=== PATIENT | male | born 2000 | race Caucasian/White ===

== ENCOUNTER 2021-09-24 00:01 | Emergency (ER) | payer OTHER ==
[~2021-09-24] VITALS: Ht 185 cm; Wt 89.0 kg
[~2021-09-24 00:01] MED LIST: LORA10TA54; PROM25SU10 PR
[2021-09-24] MEDS ORDERED: LACTATED RINGERS 1,000 ML IV STA (00:15)
[2021-09-24] MEDS ORDERED: ONDANSETRON 4 MG/2 ML (SDV) Z0FRAN IVP ONE (00:15)
--- NOTE | 2021-09-24 00:21 | ED Head Injury ---
General Stated Complaint: FELL, HIT HEAD Source: patient Exam Limitations: no limitations History of Present Illness Date Seen by Provider: Sep 24, 2021 Time Seen by Provider: 00:10 Initial Comments Here with report of head injury. Admits to drinking quite a bit of alcohol tonight at a [employer]. Currently he got home and was vomiting. He fell back and hit his head on the toilet on the back right side. No loss of consciousness but has had repeated vomiting since. They were not sure if it was related to the head injury or the alcohol so brought him in for further evaluation. Denies other injury. He is able to stand but is a little unsteady. Answers questions appropriately and follows commands. Occurred: just prior to arrival (Approximately 1 hour ago) Severity: moderate Location: occipital Method of Injury: fell Loss of Consciousness: no loss of consciousness Associated Systoms: Nausea/Vomiting Allergies and Home Medications Allergies Coded Allergies: No Known Drug Allergies (Unverified Allergy, Mild, 02/17/10) Patient Home Medication List Home Medication List Reviewed: Yes Loratadine (Children's Clear-Atadine) 10 Mg Tab.blaine, (Reported) Entered as Reported by: MARGARETTE ROTH on 02/17/102143 Review of Systems Review of Systems Constitutional: see HPI; No chills, No fever Eyes: Denies Blurred Vision, Denies Decreased Acuity Ears, Nose, Mouth, Throat: no symptoms reported Respiratory: No cough, No short of breath Cardiovascular: no symptoms reported Gastrointestinal: nausea, vomiting Musculoskeletal: No back pain, No neck pain Skin: change in color (Redness posterior right side of the head); No lesions Psychiatric/Neurological: Headache (Band[place] around the head), Other (Intoxication) All Other Systems Reviewed Negative Unless Noted: Yes Past Jlqowzh-[id number]-Gxgrsa Hx Patient Social History Tobacco Use?: No Alcohol Use?: Yes Alcohol Frequency: Once in a while Past Medical History Surgeries: No Respiratory: No Cardiac: No Genitourinary: No Gastrointestinal: No Musculoskeletal: No Family Medical History Reviewed Nursing Family Hx Physical Exam Vital Signs Vital Signs - First Documented 09/24/21 00:08 Temp 36.9 Pulse 91 Resp 16 B/P (MAP) 122/84 (97) Pulse Ox 97 O2 Delivery Room Air Capillary Refill : Height, Weight, BMI Height: '" Weight: lbs. oz. kg; BMI Method:Stated General Appearance: WD/WN, no apparent distress HEENT: PERRL/EOMI ([place] bilateral and equal), TMs normal, pharynx normal Neck: full range of motion, supple Cardiovascular: regular rate, rhythm, no murmur Respiratory: lungs clear, normal breath sounds Gastrointestinal: non tender, soft Extremities: non-tender, normal inspection Psychiatric: alert, oriented x 3 Crainal Nerves: normal hearing, PERRL, other (Slightly slurred speech) Coordination/Gait: other (Gait slightly unsteady but able to walk from wheelchair to bed unassisted) Skin: normal color, warm/dry [place] Coma Score Best Eye Response: (4) Open Spontaneously Best Verbal Response: (5) Oriented Best Motor Response: (6) Obeys Commands Progress/Results/Core Measures Results/Orders Lab Results Laboratory Tests Test 09/24/21 00:13 Range/Units White Blood Count 6.3 4.3-11.0 10^3/uL Red Blood Count 5.18 4.30-5.52 10^6/uL Hemoglobin 15.7 13.3-17.7 g/dL Hematocrit 44 40-54 % Mean Corpuscular Volume 86 80-99 fL Mean Corpuscular Hemoglobin 30 25-34 pg Mean Corpuscular Hemoglobin Concent 35 32-36 g/dL Red Cell Distribution Width 12.2 10.0-14.5 % Platelet Count 307 130-400 10^3/uL Mean Platelet Volume 9.9 9.0-12.2 fL Immature Granulocyte % (Auto) 1 % Neutrophils (%) (Auto) 62 42-75 % Lymphocytes (%) (Auto) 28 12-44 % Monocytes (%) (Auto) 5 0-12 % Eosinophils (%) (Auto) 2 0-10 % Basophils (%) (Auto) 2 0-10 % Neutrophils # (Auto) 3.9 1.8-7.8 10^3/uL Lymphocytes # (Auto) 1.8 1.0-4.0 10^3/uL Monocytes # (Auto) 0.3 0.0-1.0 10^3/uL Eosinophils # (Auto) 0.1 0.0-0.3 10^3/uL Basophils # (Auto) 0.1 0.0-0.1 10^3/uL Immature Granulocyte # (Auto) 0.1 0.0-0.1 10^3/uL Sodium Level 145 135-145 MMOL/L Potassium Level 4.1 3.6-5.0 MMOL/L Chloride Level 105 98-107 MMOL/L Carbon Dioxide Level 25 21-32 MMOL/L Anion Gap 15 H 5-14 MMOL/L Blood Urea Nitrogen 10 7-18 MG/DL Creatinine 1.19 0.60-1.30 MG/DL Estimat Glomerular Filtration Rate 76 BUN/Creatinine Ratio 8 Glucose Level 115 H 70-105 MG/DL Calcium Level 9.1 8.5-10.1 MG/DL Corrected Calcium 8.5-10.1 MG/DL Total Bilirubin 0.3 0.1-1.0 MG/DL Aspartate Amino Transf (AST/SGOT) 51 H 5-34 U/L Alanine Aminotransferase (ALT/SGPT) 94 H 0-55 U/L Alkaline Phosphatase 61 40-136 U/L Total Protein 7.7 6.4-8.2 GM/DL Albumin 4.7 H 3.2-4.5 GM/DL Serum Alcohol 254 H <10 MG/DL My Orders Orders - YESSENIA ACUÑA MD Ct Head Wo (09/24/21 00:15) Alcohol (09/24/21 00:15) Cbc With Automated Diff (09/24/21 00:15) Comprehensive Metabolic Panel (09/24/21 00:15) Ondansetron Injection (Zofran Injectio (09/24/21 00:15) Lactated Ringers (Lr 1000 Ml Iv Solution (09/24/21 00:15) Ed Iv/Invasive Line Start (09/24/21 00:15) Medications Given in ED Current Medications Medications Dose Ordered Sig/Elian Route Start Time Stop Time Status Last Admin Dose Admin Ondansetron HCl 4 mg ONCE ONCE IVP 09/24/21 00:15 09/24/21 00:18 DC 09/24/21 00:30 4 MG Vital Signs/I&O 09/24/21 00:08 Temp 36.9 Pulse 91 Resp 16 B/P (MAP) 122/84 (97) Pulse Ox 97 O2 Delivery Room Air Progress Progress Note : Progress Note Seen and evaluated. IV, labs and CT head ordered. LR 1 L bolus and Zofran 4 mg IV ordered. Monitor patient. 0157: No acute findings on CT. Otherwise doing okay and has family member to go home with. Discharged home with return precautions. Patient and family verbalized understanding of instructions and agreement with plan. Diagnostic Imaging Diagonstic Imaging: CT Plain Films/CT/US/NM/MRI: head Comments No acute infarct, hemorrhage, mass or edema. Per [employer] reading Reviewed: Reviewed [place] Study Departure Impression Primary Impression: Alcohol intoxication Qualified Codes: F10.920 - Alcohol use, unspecified with intoxication, uncomplicated Additional Impression: Minor head injury Qualified Codes: S09.90XA - Unspecified injury of head, initial encounter Disposition: HOME, SELF-CARE Condition: Stable Departure-Patient Inst. Decision time for Depature: 01:58 Referrals: NO,LOCAL PHYSICIAN (PCP/Family) Primary Care Physician Patient Instructions: Minor Head Injury, Adult ED, Alcohol Intoxication ED Add. Discharge Instructions: Avoid alcohol. Drink plenty of fluids and eat a light to normal diet today. T caitie it easy over the next few days with the head injury. Return for worse pain, fever, vomiting, weakness, breathing problems, vision or balance problems or other concerns as needed. You may use Tylenol/acetaminophen and/or ibuprofen as needed for pain per package directions. You may use Pepcid or the generic famotidine 20 mg once or twice daily for the next day or 2 for stomach upset as needed. YESSENIA ACUÑA MD Sep 24, 2021 00:20
[2021-09-24 00:22] LABS: BASOPHILS # (AUTO) 0.1 10^3/uL (0.0-0.1); BASOPHILS % (AUTO) 2 % (0-10); EOSINOPHILS # (AUTO) 0.1 10^3/uL (0.0-0.3); EOSINOPHILS % (AUTO) 2 % (0-10); HEMATOCRIT 44 % (40-54); HEMOGLOBIN 15.7 g/dL (13.3-17.7); LYMPHOCYTES # (AUTO) 1.8 10^3/uL (1.0-4.0); LYMPHOCYTES % (AUTO) 28 % (12-44); MEAN CORPUSCULAR HEMOGLOBIN 30 pg (25-34); MEAN CORPUSCULAR HGB CONC 35 g/dL (32-36); MEAN CORPUSCULAR VOLUME 86 fL (80-99); MEAN PLATELET VOLUME 9.9 fL (9.0-12.2); MONOCYTES # (AUTO) 0.3 10^3/uL (0.0-1.0); MONOCYTES % (AUTO) 5 % (0-12); NEUTROPHILS # (AUTO) 3.9 10^3/uL (1.8-7.8); NEUTROPHILS % (AUTO) 62 % (42-75); PLATELET COUNT 307 10^3/uL (130-400); WHITE BLOOD COUNT 6.3 10^3/uL (4.3-11.0)
[2021-09-24 00:36] LABS: ALBUMIN 4.7 GM/DL (3.2-4.5); CHLORIDE 105 MMOL/L (98-107); POTASSIUM 4.1 MMOL/L (3.6-5.0); SODIUM 145 MMOL/L (135-145)
[2021-09-24 00:37] LABS: CALCIUM 9.1 MG/DL (8.5-10.1)
[2021-09-24 00:38] LABS: GLUCOSE 115 MG/DL (70-105)
[2021-09-24 00:39] LABS: CARBON DIOXIDE 25 MMOL/L (21-32); TOTAL PROTEIN 7.7 GM/DL (6.4-8.2)
[2021-09-24 00:40] LABS: BILIRUBIN,TOTAL 0.3 MG/DL (0.1-1.0)
[2021-09-24 00:42] LABS: ALKALINE PHOSPHATASE 61 U/L (40-136); CREATININE SERUM 1.19 MG/DL (0.60-1.30); GFR ESTIMATED 76
[2021-09-24 00:43] LABS: BUN/CREATININE RATIO 8
[2021-09-24 00:45] LABS: ALANINE AMINOTRANSFERASE 94 U/L (0-55)
[2021-09-24 02:06] VITALS: BP 126/78
--- NOTE | 2021-09-24 04:29 | Diagnostic Imaging Report ---
PROCEDURE: CT head without contrast. TECHNIQUE: Multiple contiguous axial images were obtained through the brain without the use of intravenous contrast. Auto Exposure Controls were utilized during the CT exam to meet ALARA standards for radiation dose reduction. INDICATION: Fall with head injury and pain CT HEAD: CT images of the head were obtained. FINDINGS: Ventricles and sulci are within normal limits for size. There is no intracranial hemorrhage identified. There is no abnormal mass effect or shift of midline structures. There is mild mural thickening in the left maxillary sinus. Mild mural thickening is also noted in bilateral ethmoid air cells. Calvarium is intact. IMPRESSION: Unremarkable CT of the head. Dictated by: Dictated on workstation # [id number]
== END 2021-09-24 02:06 | disposition home or self-care (01) ==
LOC: EDUNIT# 00:01 → ER 00:04
DX: S09.90XA Unspecified injury of head, initial encounter (principal); F10.929 Alcohol use, unspecified with intoxication, unspecified; Y90.0 Blood alcohol level of less than 20 mg/100 ml; W01.198A Fall on same level from slipping, tripping and stumbling with subsequent striking against other object, initial encounter
CPT/HCPCS: 70450; 80053; 85025; 99284; G0480; 36415; 80320